=== PATIENT | male | born 1985 | race Caucasian/White ===

== ENCOUNTER 2016-02-26 22:29 | Inpatient (IN) | payer OTHER ==
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
[2016-02-26 23:40] LABS: % IMMATURE GRANULYOCYTES 0.3 % (0.0-1.1); ABSOLUTE IMMATURE GRANULOCYTES 0.03 10^3/uL (0.00-0.10); ADD DIFF? NO; ADD MORPH? NO; ADD SCAN? NO; ATYPICAL LYMPHOCYTE FLAG 10 (0-99); FRAGMENT RBC FLAG 0 (0-99); HEMATOCRIT 49.7 % (40.0-51.0); HEMOGLOBIN 17.6 g/dL (13.7-17.5); LEFT SHIFT FLG 0 (0-99); LIPEMIA HEMOLYSIS FLAG 90 (0-99); MEAN CELL HEMOGLOBIN 29.4 pg (27.9-34.1); MEAN CELL HEMOGLOBIN CONCENTR. 35.4 g/dL (32.4-36.7); MEAN PLATELET VOLUME 10.6 fL (8.7-11.7); PLATELET CLUMPS FLAG 10 (0-99); PLATELET COUNT 329 10^3/uL (150-400); RED BLOOD CELL COUNT 5.99 10^6/uL (4.40-6.38); RED CELL DISTRIBUTION WIDTH 12.6 % (11.5-15.2)
[2016-02-26 23:46] LABS: ANION GAP 13 mEq/L (8-16); CALCIUM 9.7 mg/dL (8.5-10.4); CARBON DIOXIDE 26 mEq/l (22-31); CHLORIDE 100 mEq/L (97-110); CREATININE 0.9 mg/dL (0.7-1.3); ETHANOL SERUM < 10 mg/dL (0-10); GLOMERULAR FILTRATION RATE > 60; GLUCOSE 82 mg/dL (70-100); POTASSIUM 4.3 mEq/L (3.5-5.2); SODIUM 139 mEq/L (134-144)
[2016-02-27] MEDS ORDERED: MAG HYDROX/AL HYDROX/SIMETH 30 ML UDCUP PO PRN (16:19)
[2016-02-27] MEDS ORDERED: LORazepam 0.5 MG TAB PO PRN (16:19)
[2016-02-27] MEDS ORDERED: MAGNESIUM HYDROXIDE 30 ML UDCUP PO PRN (16:19)
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
--- NOTE | 2016-02-27 21:19 | BCON ---
[f rep st] BEHAVIORAL HEALTH CONSULTATION INTERNAL MEDICINE CONSULTATION. DATE OF CONSULTATION: 02/27/2016 REFERRING PHYSICIAN: Seymour Calero MD REASON FOR CONSULTATION: Medical clearance for inpatient behavioral health stay. HISTORY OF PRESENT ILLNESS: The patient came to the [facility] emergency department complaining of worsening depression and suicidal ideation. He had been off psychiatric medications for approximately a year, and he had recent increased stressors including the of his mother and a trip back to [place] for her . He was evaluated by the Mental Health Team and admitted for further psychiatric care. He currently is without any acute complaints. PAST MEDICAL HISTORY: He reports history of fatty liver and of a high cholesterol. PAST SURGICAL HISTORY: He denies history of any surgeries. MEDICATIONS: He in the past has taken medications for cholesterol but not for several years, and he has been off psychiatric medications for approximately a year, and he was taking no medications prior to his admission. ALLERGIES: There are no known drug allergies. SOCIAL HISTORY: He is living with his girlfriend. He is on disability income for mental health issues. He is a nonsmoker and nondrinker. FAMILY HISTORY: He reports both his parents have from complications of blood clots, including a pulmonary embolus in his father, and a stroke in his mother. REVIEW OF SYSTEMS: He denies weight change, feeling excessively hot or cold, chest pain, palpitations, cough, dyspnea, abdominal pain, nausea, vomiting, constipation, or diarrhea, and otherwise a 10-point review of systems is negative. PHYSICAL EXAM: VITALS: Blood pressure is 121/87, heart rate is 93, respiratory rate is 12, oxygen saturation 95% on room air, temperature is 36.8 degrees centigrade. His weight is 99.8 kg for a body mass index of 31.6. GENERAL: This is an obese man, somewhat unkempt with long hair and a long jorgensen , cooperative, and in no acute distress. HEENT: Extraocular movements are intact. Pupils are equal, round, and reactive to light and accommodation. Mucous membranes are moist. Dentition is in good condition. NECK: Supple. HEART: There is a regular rate and rhythm with no murmurs, rubs, or gallops. LUNGS: Clear to auscultation bilaterally. ABDOMEN: Soft, nontender, nondistended, with normoactive bowel sounds. EXTREMITIES: There is no cyanosis , clubbing, or edema. NEUROLOGIC: He is alert and oriented x3. Cranial nerves 2 through 12 are grossly intact. There is no focal weakness, and sensation is intact to light touch. LABORATORY STUDIES: Drawn in the emergency department: CBC revealed a high white blood cell count at 10.52. There was no left shift, though there was a predominance of absolute neutrophils at 6.72. His hemoglobin was mildly elevated at 17.6. Otherwise, CBC was within normal limits. Serum chemistry revealed normal renal function and electrolytes. Toxicology screen in the serum was negative for ethyl alcohol, and the urine was negative for any substances of abuse. ASSESSMENT AND RECOMMENDATIONS: 1. Psychiatric issues. Pending further evaluation and management per Psychiatry and the Mental Health Team. 2. Dyslipidemia, per history. Agree with checking lipid panel, especially as Psychiatry is contemplating medications which can cause or exacerbate metabolic syndrome. 3. Steatohepatitis. Again, agree with laboratory studies as ordered by Psychiatry. 4. Obesity. Consider avoiding medications which could cause increased weight gain, though psychosocial stabilization is priority at present. I see no medical contraindications to the patient's continued stay on the inpatient behavioral health unit or to any psychiatric medications or procedures. Thank you very much for including me in the care of the patient, and please do not hesitate to contact me or the hospitalist service should there be a need for further medical evaluation. /[id number]/MODL MTDD
[2016-02-28 09:36] LABS: ALANINE AMINOTRANSFERASE 47 IU/L (21-72); ALBUMIN 4.2 g/dL (3.5-5.0); ALKALINE PHOSPHATASE 74 IU/L (38-126); ANION GAP 13 mEq/L (8-16); ASPARTATE AMINOTRANSFERASE 35 IU/L (17-59); BILIRUBIN,TOTAL 0.8 mg/dL (0.1-1.4); CALCIUM 9.5 mg/dL (8.5-10.4); CARBON DIOXIDE 25 mEq/l (22-31); CHLORIDE 100 mEq/L (97-110); CHOLESTEROL 209 mg/dL (140-200); CHOLESTEROL/HDL RATIO 4.35 RATIO (1.00-4.97); CREATININE 0.9 mg/dL (0.7-1.3); GLOMERULAR FILTRATION RATE > 60; GLUCOSE 86 mg/dL (70-100); HIGH DENSITY LIPOPROTEIN 48 mg/dL (40-65); LDL/HDL RATIO 2.77 RATIO (1.00-3.64); LOW DENSITY LIPOPROTEIN 133 mg/dL (70-100); NON-HIGH DENSITY LIPOPROTEIN 161 mg/dL (90-129); POTASSIUM 4.5 mEq/L (3.5-5.2); SODIUM 138 mEq/L (134-144); TOTAL PROTEIN 7.8 g/dL (6.3-8.2); TRIGLYCERIDE 142 mg/dL (40-150); VERY LOW DENSITY LIPOPROTEINS 28 mg/dL (8-25)
--- NOTE | 2016-02-28 11:58 | SOAPPROG ---
SOAP Progress Note Assessment/Plan: Assessment: Pt is a 31 y/o S C male who came to the ED with SI-he has had multiple dx in the past-has mostly depression but no catrachito and vague perceptual distortion but no true psychosis with hx of suicide attempts. Dr Calero discussed Lamictal trial with him and this seems like a good choice for his symptoms. In the past has had bad reactions from atypicals and antidepressants. Plan:start Lamictal 25mg QHS pt agrees to sign in VOL when M1 is up. 02/28/16 11:58 Subjective: "I'm always be depressed." Objective: Vital Signs Temp Pulse Resp BP Pulse Ox 36.5 C 80 16 123/79 H 96 02/28/16 06:00 02/28/16 06:00 02/28/16 06:00 02/28/16 06:00 02/28/16 06:00 Laboratory Results 02/28/16 06:45 Pt is A+O x4 mood-depressed affect-appr no A/V H no S/H I no sx psychosis/catrachito sleep/appetite-good pt is attending groups speech-wnl thoughts-logical, coherent no delusions memory-intact no DMITRIY I/J-fair - Time Spent With Patient Time Spent With Patient: 25' - Pending Discharge Pending Discharge Within 24 Hours: No Pending Discharge Within 48 Hours: No ICD10 Worksheet Patient Problems: Problems Problem Status Diagnosed Suicidal ideation Acute
[2016-02-28] MEDS ORDERED: lamoTRIgine 25 MG TAB PO SCH (21:00)
--- NOTE | 2016-02-29 11:15 | SOAPPROG ---
SOAP Progress Note Assessment/Plan: Assessment: Pt is a 31 y/o S C male who came to the ED with SI-he has had multiple dx in the past-has mostly depression but no catrachito and vague perceptual distortion but no true psychosis with hx of suicide attempts. Dr Calero discussed Lamictal trial with him and this seems like a good choice for his symptoms. In the past has had bad reactions from atypicals and antidepressants. Plan:increase Lamictal 50 mg QHS pt agrees to sign in VOL as M1 up in early am 02/29/16 11:13 Subjective: Pt has no c/o Objective: Vital Signs Temp Pulse Resp BP Pulse Ox 36.8 C 76 16 112/62 96 02/29/16 10:30 02/29/16 10:30 02/29/16 10:30 02/29/16 10:30 02/29/16 06:00 Laboratory Results 02/28/16 06:45 Pt is A+O x4 mood-"a little better" affect-appr thoughts-logical denies S/H I denies A/V H sleep/appetite-wnl memory/conc-intact no delusions no sx of acute catrachito or psychosis no DMITRIY I/J-fair - Time Spent With Patient Time Spent With Patient: 20' - Pending Discharge Pending Discharge Within 24 Hours: No Pending Discharge Within 48 Hours: No ICD10 Worksheet Patient Problems: Problems Problem Status Diagnosed Suicidal ideation Acute
[2016-02-29] MEDS: lamoTRIgine 25 MG TAB PO SCH (21:11)
--- NOTE | 2016-03-01 13:30 | SOAPPROG ---
SOAP Progress Note Assessment/Plan: Assessment: Plan: 03/01/16 13:30 Significant improvement. CCM. Subjective: Pt seen, discussed with staff. Reports feeling "much better" since I saw him on Tuesday. His mood is brighter and his anxiety is much better. He is more hopeful and less nihilistic. He remains concerned that if he goes home too soon he will decompensate, however. He is active in therapies and d/c planning. He would like to go to [facility] here if possible. He is compliant with Lamictal and notes no side effects. Sleep is stable. Objective: Vital Signs Temp Pulse Resp BP Pulse Ox 36.8 C 100 12 120/81 H 93 03/01/16 06:00 03/01/16 06:00 03/01/16 06:00 03/01/16 06:00 03/01/16 06:00 Laboratory Results 02/28/16 06:45 MSE: Calm, coop. Affect is brighter, stable. Mood is "much better." TP linear. TC reveals no psychosis. Specifically denies any AH's. SI "has been gone for almost 24 hours." - Time Spent With Patient Time Spent With Patient: 25" - Pending Discharge Pending Discharge Within 24 Hours: No Pending Discharge Within 48 Hours: No ICD10 Worksheet Patient Problems: Problems Problem Status Diagnosed Suicidal ideation Acute
[2016-03-01] MEDS: lamoTRIgine 25 MG TAB PO SCH (20:51)
[2016-03-01] MEDS ORDERED: diphenhydrAMINE 25 MG CAP PO ONE (23:00)
--- NOTE | 2016-03-02 14:30 | SOAPPROG ---
SOAP Progress Note Assessment/Plan: Assessment: Plan: 03/01/16 13:30 Significant improvement. CCM. 03/02/16 14:30 Continued improvement. Will CCM, work with pt on transitioning home. Subjective: Pt seen, discussed with staff. He reports feeling better each day. remains unsure if he can be home alone, but is feeling "a little more confident." Compliant with meds with no SE's noted. Slept less well last night. Objective: Vital Signs Temp Pulse Resp BP Pulse Ox 36.8 C 90 14 137/84 H 99 03/02/16 06:00 03/02/16 06:00 03/02/16 06:00 03/02/16 06:00 03/02/16 06:00 Laboratory Results 02/28/16 06:45 MSE: Calm, coop. Affect is brighter, less anxious. Mood is "pretty good." TP linear. TC reveals no psychosis. Denies active SI, but is unsure if he will be safe at home. - Time Spent With Patient Time Spent With Patient: 25" - Pending Discharge Pending Discharge Within 24 Hours: No Pending Discharge Within 48 Hours: No ICD10 Worksheet Patient Problems: Problems Problem Status Diagnosed Suicidal ideation Acute
[2016-03-02] MEDS: lamoTRIgine 25 MG TAB PO SCH (21:26)
[2016-03-03 01:38] VITALS: BP 135/78; PULSE 76; RESP 16; TEMP 98.4; O2SAT 95
--- NOTE | 2016-03-03 19:18 | BDS ---
[f rep st] BEHAVIORAL HEALTH DISCHARGE SUMMARY REASON FOR ADMISSION: Patient is a 31-year-old male, who was brought to the hospital by hi s significant other due to worsening depression and suicidality. He has a longstanding history of bi polar disorder, though had been off medications for at least the past year. He states that he has wells d numerous stresses including the unexpected of his mother a month ago, and that he has been fe eling more and more depressed. He also feels that he has essentially been treated unfairly and that life is not worth living. A full description of the events preceding his admission can be found in h is admission history dated 02/27/2016. ADMITTING DIAGNOSES: 1. Bipolar 2 disorder, most recent episode mixed, severe, without psychosis. 2. 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 3. Marginal supports. 4. Recent of mother. 5. Financial stress. ADMITTING PHYSICAL EXAMINATION: Performed by Dr. Frank Rodriguez revealed obesity, otherwise no acut e physical findings. ADMISSION LABORATORY: CBC showed a white count of 10.52, otherwise normal. Serum chemistries were n ormal. Liver function was normal, and lipid profile revealed cholesterol up at 209 and triglycerides normal at 142. Urine drug screen was negative for all substances. Alcohol was less than detectable . HOSPITAL COURSE: Patient was admitted to the behavior health services inpatient unit on an M1 hold. He was complaining of suicidality and stated that essentially life was not worth living. He demonst rated what appeared to be a schizotypal personality from the first interview in that his perceptions were somewhat idiosyncratic, and he struggled tremendously historically with interpersonal relationsh ips. He described some vague auditory hallucinations, though did not seem to meet a criteria for mirna izophrenia or schizoaffective disorder. The many acute psychosocial stressors were obvious, and I di scussed with him potential treatments. He stated that he had never done well on antidepressants and that they may have even made him worse, and that he did not want to take any atypical antipsychotics. I reviewed with him other options for mood stabilization and enhancement. He is agreeable to a tri al of Lamictal. We started this at 50 mg daily after thorough review of the risks, benefits, and alt ernatives by myself and Dr. Allen. He tolerated the medicine quite well and noticed significant calming. Patient's hospital course was uncomplicated. He participated actively in individual group and milieu psychotherapies, and was compliant with his medications. He was hesitant to participate in discharg e planning as he stated he felt uncomfortable returning to his home alone as his girlfriend was out o town for the week. As the week progressed however, he became more confident and got support from h is brother, and he felt like he could do that. On the day of discharge, patient had contacted his br other, who stated he could pick him up and they would return to his home. CONDITION ON DISCHARGE: Stable. His affect was euthymic, stable, and appropriate. He was interacti ng well with others, and he was voicing no thoughts of suicide. DISCHARGE MEDICATIONS: Lamictal 50 mg daily until 03/06/2016, at which time increase to 75 mg daily until 03/13/2016, at which time increase to 100 mg daily. Patient was given enough medication for th is titration. DISCHARGE DIAGNOSES: 1. Bipolar 2 disorder, most recent episode, depressed, severe without psychosis. 2. Marginal supports. 3. Recent of mother. 4. Financial stress. 5. The possibility of schizotypal personality disorder remains. DISPOSITION: Patient left the hospital with his brother. FOLLOWUP: With our counseling center for consideration for IOP with a backup plan to go to [facility]. LEGAL COURSE: Patient was converted to a voluntary status at the expiration of his M1 hold. /[id number]/MODL
== END 2016-03-03 13:45 | disposition home or self-care (01) | DRG 885 ==
LOC: BBEH 02-27 12:30
PROVIDERS: ADMIT Psychiatry & Neurology Psychiatry; ATTEND Psychiatry & Neurology Psychiatry
DX: F31.63 Bipolar disorder, current episode mixed, severe, without psychotic features (principal); E78.00 Pure hypercholesterolemia, unspecified; K76.0 Fatty (change of) liver, not elsewhere classified; F21 Schizotypal disorder; E66.9 Obesity, unspecified; Z68.31 Body mass index [BMI] 31.0-31.9, adult
CPT/HCPCS: 80305; G0480